=== PATIENT | female | born 1980 | race Caucasian/White ===

== ENCOUNTER → 2021-07-01 14:19 | Outpatient (REF) | payer BC, SELFPAY | LOC: ANHLAB 14:19 | PROVIDERS: Visit Provider Nurse Practitioner | DX: L72.0 Epidermal cyst (principal) | CPT/HCPCS: 88304 ==

== ENCOUNTER 2023-10-08 21:04 | Emergency (ER) | payer BC, SELFPAY ==
--- NOTE | ~2023-10-08 | CT_ITS ---
EXAMINATION: CT soft tissue neck wo con DATE: 10/08/2023 21:31 INDICATION: Food bolus with difficulty swallowing TECHNIQUE: Computed tomography (CT) of the neck was performed without intravenous contrast. Automated exposure control and iterative reconstruction technique were employed. The dose-length product was 5 66.40 mGy-cm. COMPARISON: None FINDINGS: Orbits are normal. The paranasal sinuses are clear. Visualized sinuses, middle ear cavities and masto id aircells are well aerated. Submandibular and parotid glands are symmetric. Thyroid gland is unrema rkable. There are scattered normal-sized lymph nodes in the neck, no lymphadenopathy. Normal epiglott is. Airway and upper esophagus are unremarkable. No masses identified. Superior mediastinum is unrema rkable. Lung apices are normal. Mild cervical spondylosis. IMPRESSION: 1. Unremarkable noncontrast CT of the neck. Reviewed, dictated and finalized at location A. 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
[2023-10-08 21:07] VITALS: BP 152/91; PULSE 81; RESP 16; TEMP 36.7; O2SAT 100
--- NOTE | 2023-10-08 23:02 | ED.GENADULT ---
[facility] - General Adult General Chief complaint: Unspecified Stated complaint: food bolus Time Seen by Provider: 10/08/23 22:33 Source: patient Mode of arrival: ambulatory Limitations: no limitations History of Present Illness [facility] narrative: This is a 43-year-old female who presents to the ED with chief complaint of possible food bolus. Patient reports that she was eating a piece of beef jerky tonight and almost choked on it. Reports that she coughs a little bit but felt like it was still lodged in the back of her throat. She states she had some difficulty with swallowing but was able to get clear liquid down. Reports her tried the Heimlich maneuver which did not have any success. Denies any current shortness of breath. Patient states that while waiting in the waiting room which she was able to swallow and she felt like the bolus sensation had been relieved. She has been asymptomatic since. States she is tolerating p.o. water perfectly well now. Related Data Allergies Allergy/AdvReac Type Severity Reaction Status Date / Time No Known Allergies Allergy Verified 07/08/21 15:38 Review of Systems Review of Systems: All systems as dictated in [facility] Surgical History Surgical History History of cholecystectomy History of tonsillectomy Family History Family History Father Diabetes mellitus Social History Social History Smoking status: Never smoker Alcohol intake: current Substance use: never Substance use type: does not use Exam Narrative: GENERAL: Well-appearing, well-nourished, and in no acute distress. HEAD: Normocephalic, atraumatic. EYES: PERRLA and EOMI. ENT: Nares clear, no rhinorrhea or epistaxis. Mucous membranes moist. Oropharynx without tonsillar hypertrophy exudate or other lesions. NECK: Supple. No adenopathy or masses. CHEST: No respiratory distress. Clear to auscultation. No wheezes rales or rhonchi. 100% room air with equal breath sounds bilaterally. HEART: Regular rate and rhythm. No murmur heard. Normal peripheral pulses. ABDOMEN: Soft, nontender, nondistended, normal active bowel sounds. MSK: Normal range of motion. No edema. SKIN: Warm, dry, no rash. NEURO: Alert and oriented x3. No focal deficits. PSYCH: Normal mood and affect. Course Vital Signs Vital signs: Vital Signs Temperature 98.0 F 10/08/23 21:07 Pulse Rate 81 10/08/23 21:07 Respiratory Rate 16 10/08/23 21:07 Blood Pressure 152/91 H 10/08/23 21:07 Pulse Oximetry 100 10/08/23 21:07 Oxygen Delivery Room Air 10/08/23 21:07 Temperature 98.0 F 10/08/23 21:07 Pulse Rate 75 10/08/23 23:18 Respiratory Rate 20 10/08/23 23:18 Blood Pressure 128/101 H 10/08/23 23:18 Pulse Oximetry 97 10/08/23 23:18 Oxygen Delivery Room Air 10/08/23 21:07 Medical Decision Making MDM Narrative Medical decision making narrative: This is a 43-year-old female who presents to the ED for chief complaint of globus sensation after eating beef jerky. Vitals are normal. Exam is benign on my arrival. Symptoms of her salt by the time I am able to speak to the patient. CT soft tissue neck does not show any acute findings. She is tolerating p.o.. Respiratory exam intact Pt will be discharged in stable condition. Return precautions given and supportive measures discussed. Pt is understanding and agreeable with plan for discharge and follow-up with PCP. Vital Signs Vital Signs: Vital Signs Temperature 98.0 F 10/08/23 21:07 Pulse Rate 81 10/08/23 21:07 Respiratory Rate 16 10/08/23 21:07 Blood Pressure 152/91 H 10/08/23 21:07 Pulse Oximetry 100 10/08/23 21:07 Oxygen Delivery Room Air 10/08/23 21:07 Temperature 98.0 F 10/08/23 21:07 Pulse Rate 75 10/08/23 23:18 Respiratory Rate 20
[2023-10-08 23:18] VITALS: BP 128/101; PULSE 75; RESP 20; O2SAT 97
== END 2023-10-08 23:18 | disposition home or self-care (01) ==
PROVIDERS: Emergency Provider Physician Assistant
DX: R09.A2 Foreign body sensation, throat (principal); Z90.49 Acquired absence of other specified parts of digestive tract
CPT/HCPCS: 70490; 99284